=== PATIENT | female | born 1960 | race Caucasian/White ===

== ENCOUNTER 2023-09-30 14:41 | Inpatient (IN) | payer BC ==
[~2023-09-30] VITALS: Ht 160 cm; Wt 85.3 kg
[2023-09-30 14:52] VITALS: BP_SYST 169; PULSE 53; RESP 22; TEMP 98.3; O2SAT 100
[2023-09-30] MEDS ORDERED: MECLIZINE HCL 25 MG TABLET (ANITVERT) PO ONE (15:15)
[2023-09-30 16:05] LABS: BASOPHILS % (AUTO) 0.3 % (0.0-2.0); EOSINOPHILS # (AUTO) 0.1 K/uL (0.0-0.4); EOSINOPHILS % (AUTO) 0.6 % (0.0-4.0); HEMATOCRIT 43.3 % (36-48); HEMOGLOBIN 14.6 g/dL (12.0-16.0); LYMPHOCYTES # (AUTO) 1.1 K/uL (1.0-5.5); LYMPHOCYTES % (AUTO) 8.2 % (20.5-51.5); MEAN CORPUSCULAR HEMOGLOBIN 32 pg (27-31); MEAN CORPUSCULAR HGB CONC 34 % (32-36); MEAN CORPUSCULAR VOLUME 94 fL (79.0-98.0); MONOCYTES # (AUTO) 0.6 K/uL (0.0-1.0); MONOCYTES % (AUTO) 4.7 % (1.7-9.3); NEUTROPHILS # (AUTO) 11.8 K/uL (1.8-7.7); NEUTROPHILS % (AUTO) 86.2 % (40.0-70.0); PLATELET COUNT (AUTO) 329 K/uL (130-430); RED BLOOD CELL COUNT(AUTO) 4.62 MIL/uL (4.2-6.2); RED CELL DISTRIBUTION WIDTH 13.3 % (9.0-15.0); WHITE BLOOD COUNT (AUTO) 13.7 K/uL (4.8-10.8)
[2023-09-30 16:24] LABS: ANION GAP 11 (5-15); CALCIUM 9.4 mg/dL (8.4-11.0); CARBON DIOXIDE 25 mmol/L (23-29); CHLORIDE 100 mmol/L (98-107); CREATININE 1.87 mg/dL (0.55-1.30); GFR AFRICAN AMERICAN 35 mL/min (>90); GFR NON AFRICAN-AMERICAN 29 mL/min (>90); GLUCOSE 251 mg/dL (74-106); SODIUM SERUM 136 mmol/L (136-145); UREA NITROGEN, BLOOD 31 mg/dL (8-21)
[2023-09-30 16:38] LABS: BILIRUBIN,URINE 2+ (NEGATIVE); BLOOD, URINE 1+ (NEGATIVE); COLOR,URINE YELLOW (YELLOW); GLUCOSE,URINE 3+ (NEGATIVE); KETONES,URINE TRACE (NEGATIVE); LEUKOCYTE ESTERASE ,URINE 1+ (NEGATIVE); NITRITE, URINE POSITIVE (NEGATIVE); PH,URINE 5.5 (5.0-8.0); PROTEIN URINE 2+ (NEGATIVE)
[2023-09-30 16:57] LABS: BACTERIA,URINE MANY /HPF (None Seen); COARSE GRANULAR CASTS,URINE 0-10 /LPF (None Seen); FINE GRANULAR CASTS,URINE 0-10 /LPF (None Seen); MUCUS,URINE None Seen /LPF (None Seen); URINE AMORPHOUS URATE 1+ /HPF (None Seen); WBC,URINE 20-50 /HPF (0-3)
[2023-09-30 17:06] LABS: CLARITY/URINE SLIGHTLY CLOUDY (CLEAR)
[2023-09-30] MEDS ORDERED: ASPIRIN 325 MG TABLET PO ONE (17:15)
[2023-09-30] MEDS ORDERED: cefTRIAXone 1 GM in D5W 50 ML IV ONE (17:15)
[2023-09-30] MEDS ORDERED: cloNIDine HCL 0.1 MG TABLET PO PRN (17:30)
[2023-09-30] MEDS ORDERED: 0.45% NACL 1,000 ML IV ONE (17:30)
[2023-09-30 17:49] LABS: PROTHROMBIN TIME 10.4 SECS (9.5-12.5)
[2023-09-30] MEDS ORDERED: DEXTROSE 50% JECT 50 ML DISP.SYRIN IVP PRN (20:15)
[2023-09-30] MEDS ORDERED: cloNIDine HCL 0.2 MG TABLET PO PRN (20:30)
[2023-09-30] MEDS ORDERED: POTASSIUM CHLORIDE 10 MEQ in 0.45% NACL 1,000 ML IV SCH (20:30)
[2023-09-30 21:00] VITALS: O2SAT 100
[2023-09-30] MEDS ORDERED: LEVOFLOXACIN 250 MG/D5W 50 ML IV ONE (21:00)
[2023-09-30] MEDS: ENOXAPARIN SODIUM 40 MG/0.4 ML SYRINGE SUBCUT SCH (21:52)
[2023-09-30] MEDS: 0.45% NACL 1,000 ML IV SCH (21:52)
[2023-09-30 22:12] VITALS: BP_SYST 123; PULSE 98; RESP 18; TEMP 98.2
[2023-09-30] MEDS: INSULIN REGULAR, HUMAN 100 UNITS/ML, 3 ML VIAL (humuLIN R) SUBCUT PRN (22:34)
[2023-10-01] VITALS: BP_SYST 103; PULSE 63; RESP 17; TEMP 98.8; O2SAT 98
[2023-10-01] MEDS ORDERED: METOPROLOL TARTRATE 25 MG TABLET ONE (01:46)
[2023-10-01] MEDS: METOPROLOL TARTRATE 25 MG TABLET PO SCH ×3 (03:29→20:50)
[2023-10-01 03:30] VITALS: BP_SYST 110; PULSE 143; RESP 18; O2SAT 98
[2023-10-01 04:06] LABS: CALCIUM 8.3 mg/dL (8.4-11.0); CREATININE 1.44 mg/dL (0.55-1.30); POTASSIUM 4.1 mmol/L (3.5-5.1)
[2023-10-01 04:24] LABS: ALBUMIN 2.1 g/dL (3.4-4.8); FREE T4 (FREE THYROXINE) 1.6 ng/dL (0.6-1.6); PHOSPHORUS 4.6 mg/dL (2.7-4.5); THYROID STIMULATING HORMONE 0.07 uIu/mL (0.34-4.82); TOTAL BILIRUBIN 0.4 mg/dL (0.0-1.0); TOTAL PROTEIN, SERUM 5.6 g/dL (6.4-8.3)
[2023-10-01 04:37] LABS: BARBITURATE, URINE NEGATIVE (NEG <=200); BENZODIAZEPINE, URINE POSITIVE (NEG <=150)
[2023-10-01 04:38] LABS: CANNABINOID, URINE NEGATIVE (NEG <=50); COCAINE, URINE NEGATIVE (NEG <=150); METHAMPHETAMINES SCREEN,URINE NEGATIVE (NEG <=500); OPIATE, URINE NEGATIVE (NEG <=100); PHENCYCLIDINE SCREEN,URINE NEGATIVE (NEG <=25); UR TRICYCLIC ANTIDEPRESSANTS NEGATIVE (NEG <=300); URINE AMPHETAMINE NEGATIVE (NEG <=500); URINE METHADONE NEGATIVE (NEG <=200); URINE OXYCODONE SCREEN NEGATIVE (NEG <=100)
[2023-10-01 04:39] LABS: BASOPHILS % (AUTO) 0.5 % (0.0-2.0); EOSINOPHILS # (AUTO) 0.4 K/uL (0.0-0.4); EOSINOPHILS % (AUTO) 4.5 % (0.0-4.0); HEMATOCRIT 36.3 % (36-48); HEMOGLOBIN 12.4 g/dL (12.0-16.0); LYMPHOCYTES # (AUTO) 1.3 K/uL (1.0-5.5); LYMPHOCYTES % (AUTO) 14.8 % (20.5-51.5); MEAN CORPUSCULAR HEMOGLOBIN 32 pg (27-31); MEAN CORPUSCULAR HGB CONC 34 % (32-36); MEAN CORPUSCULAR VOLUME 93 fL (79.0-98.0); MONOCYTES # (AUTO) 0.7 K/uL (0.0-1.0); MONOCYTES % (AUTO) 8.1 % (1.7-9.3); NEUTROPHILS # (AUTO) 6.4 K/uL (1.8-7.7); NEUTROPHILS % (AUTO) 72.1 % (40.0-70.0); PLATELET COUNT (AUTO) 254 K/uL (130-430); RED BLOOD CELL COUNT(AUTO) 3.91 MIL/uL (4.2-6.2); RED CELL DISTRIBUTION WIDTH 12.9 % (9.0-15.0); WHITE BLOOD COUNT (AUTO) 8.9 K/uL (4.8-10.8)
[2023-10-01] MEDS: INSULIN REGULAR, HUMAN 100 UNITS/ML, 3 ML VIAL (humuLIN R) SUBCUT PRN ×2 (06:43→12:11)
[2023-10-01 08:00] VITALS: BP_SYST 120; PULSE 89; RESP 18; TEMP 97.4; O2SAT 97
[2023-10-01] MEDS: ENOXAPARIN SODIUM 40 MG/0.4 ML SYRINGE SUBCUT SCH (08:38)
[2023-10-01] MEDS ORDERED: CLOPIDOGREL BISULFATE 75 MG TABLET PO ONE (10:00)
[2023-10-01] MEDS: 0.45% NACL 1,000 ML IV SCH ×2 (12:22→17:15)
[2023-10-01 14:12] VITALS: BP_SYST 126; PULSE 84; RESP 18; TEMP 98.9; O2SAT 97
[2023-10-01 16:00] VITALS: BP_SYST 134; PULSE 87; RESP 17; TEMP 97.1; O2SAT 100
[2023-10-01] MEDS ORDERED: LEVOFLOXACIN 250 MG/D5W 50 ML IV SCH (20:00)
[2023-10-01 20:10] VITALS: BP_SYST 143; PULSE 93; RESP 18; TEMP 98.2; O2SAT 100
[2023-10-01] MEDS: APIXABAN 2.5 MG TABLET PO SCH (20:53)
[2023-10-01] MEDS ORDERED: INSULIN GLARGINE 100 UNITS/ML, 10 ML VIAL SUBCUT SCH (21:00)
[2023-10-02] VITALS: BP_SYST 137; PULSE 98; RESP 17; TEMP 97.3; O2SAT 99
[2023-10-02] MEDS: 0.45% NACL 1,000 ML IV SCH ×2 (01:21→13:15)
[2023-10-02 05:14] LABS: BASOPHILS % (AUTO) 0.5 % (0.0-2.0); EOSINOPHILS # (AUTO) 0.3 K/uL (0.0-0.4); EOSINOPHILS % (AUTO) 3.8 % (0.0-4.0); HEMATOCRIT 33.9 % (36-48); HEMOGLOBIN 11.7 g/dL (12.0-16.0); LYMPHOCYTES # (AUTO) 1.9 K/uL (1.0-5.5); LYMPHOCYTES % (AUTO) 23.1 % (20.5-51.5); MEAN CORPUSCULAR HEMOGLOBIN 32 pg (27-31); MEAN CORPUSCULAR HGB CONC 35 % (32-36); MEAN CORPUSCULAR VOLUME 92 fL (79.0-98.0); MONOCYTES # (AUTO) 0.7 K/uL (0.0-1.0); MONOCYTES % (AUTO) 8.7 % (1.7-9.3); NEUTROPHILS # (AUTO) 5.2 K/uL (1.8-7.7); NEUTROPHILS % (AUTO) 63.9 % (40.0-70.0); PLATELET COUNT (AUTO) 261 K/uL (130-430); RED BLOOD CELL COUNT(AUTO) 3.69 MIL/uL (4.2-6.2); RED CELL DISTRIBUTION WIDTH 13.1 % (9.0-15.0); WHITE BLOOD COUNT (AUTO) 8.1 K/uL (4.8-10.8)
[2023-10-02 05:33] LABS: CALCIUM 8.1 mg/dL (8.4-11.0); CREATININE 0.8 mg/dL (0.55-1.30); POTASSIUM 4.6 mmol/L (3.5-5.1); TOTAL BILIRUBIN 0.3 mg/dL (0.0-1.0); TOTAL PROTEIN, SERUM 5.6 g/dL (6.4-8.3)
[2023-10-02 08:24] VITALS: O2SAT 98
[2023-10-02 08:35] VITALS: BP_SYST 130; PULSE 78; RESP 16; TEMP 98.3; O2SAT 100
[2023-10-02] MEDS: METOPROLOL TARTRATE 25 MG TABLET PO SCH (08:46)
[2023-10-02] MEDS: APIXABAN 2.5 MG TABLET PO SCH (08:48)
[2023-10-02] MEDS ORDERED: ATORVASTATIN 20 MG TABLET PO SCH (09:00)
[2023-10-02] MEDS ORDERED: CLOPIDOGREL BISULFATE 75 MG TABLET PO SCH (09:00)
[2023-10-02 11:18] VITALS: BP_SYST 130; PULSE 87; RESP 16; TEMP 98.8; O2SAT 100
[2023-10-02 15:37] VITALS: BP_SYST 146; PULSE 84; RESP 18; TEMP 98.1; O2SAT 100
[2023-10-02] MEDS ORDERED: CLOP75TA32 PO (17:33)
[2023-10-02] MEDS ORDERED: LIP20 PO (17:33)
[2023-10-02] MEDS ORDERED: METO25TA6 PO (17:33)
[2023-10-02] MEDS ORDERED: INSU100V9 SUBCUT (17:33)
[2023-10-02 18:02] VITALS: BP_SYST 146; PULSE 84; RESP 18; TEMP 98.1; O2SAT 100
== END 2023-10-02 19:14 | disposition home or self-care (01) | DRG 65 ==
LOC: SED 14:41 → STU 17:21
PROVIDERS: ADMIT Internal Medicine; ATTEND Internal Medicine
DX: I63.9 Cerebral infarction, unspecified (principal); N17.9 Acute kidney failure, unspecified; N39.0 Urinary tract infection, site not specified; E11.51 Type 2 diabetes mellitus with diabetic peripheral angiopathy without gangrene; R29.701 NIHSS score 1; I25.10 Atherosclerotic heart disease of native coronary artery without angina pectoris; I48.0 Paroxysmal atrial fibrillation; I10 Essential (primary) hypertension; E86.0 Dehydration; Z88.0 Allergy status to penicillin; Z79.899 Other long term (current) drug therapy; Z87.891 Personal history of nicotine dependence; Z79.4 Long term (current) use of insulin; Z86.73 Personal history of transient ischemic attack (TIA), and cerebral infarction without residual deficits; Z79.02 Long term (current) use of antithrombotics/antiplatelets; Z79.01 Long term (current) use of anticoagulants
CPT/HCPCS: 36415; 70551; 71045; 80048; 80053; 80061; 80307; 81000; 81001; 81015; 82962; 83037; 83735; 83880; 84100; 84439; 84443; 84484; 85025; 85610-TC; 85730-TC; 87086; 93005; 93306; 93880; 97116-GP; 97530-GP; 99291; G0378; J1650; J1815; J1956; J8597